=== PATIENT | female | born 1955 | race Caucasian/White ===

== ENCOUNTER 2017-11-19 09:07 | Inpatient (IN) | payer BC ==
[2017-11-12 09:49] VITALS: BMI 32.0
[2017-11-19] VITALS (8 sets, daily range): BP systolic 104–138; BP diastolic 65–82; PULSE 60–87; TEMP 36.5–36.8; O2SAT 94–100; Ht 165.1 cm; Wt 87.3 kg
[~2017-11-19] VITALS: Ht 165.1 cm; Wt 87.3 kg
[~2017-11-19 09:07] MED LIST: AMOX500C3 PO; ASPI81TA28 PO; ATV1 PO; LACTATED RINGER'S 1000ML 1,000 ML IV SCH
[2017-11-19] MEDS ORDERED: SCOPOLAMINE 1.5 MG TDSY TD ONE ×2 (11:20→11:30)
[2017-11-19] MEDS ORDERED: ATROPINE SULFATE 0.1 MG/ML 5ML SYR IV PRN (11:30)
[2017-11-19] MEDS ORDERED: ONDANSETRON INJ 2 MG/ML 2 ML VIAL IV PRN ×2 (11:30→15:00)
[2017-11-19] MEDS ORDERED: HYDROmorphone INJ 1 MG/ML SYR IV PRN (11:30)
[2017-11-19] MEDS ORDERED: EpHEDrine SULFATE INJ 50 MG/ML AMP IV PRN (11:30)
--- NOTE | 2017-11-19 11:35 | History & Physical Bridge Note ---
H&P Re-Evaluation Bridge Note: I have examined the patient, reviewed the History & Physical and in the interval since the performance of the History & Physical I have noted the following changes of clinical significance: No changes noted all questions answered family member x3 at bedside
[2017-11-19] MEDS ORDERED: GLYCOPYRROLATE INJ 0.2 MG/ML VIAL ONE ×2 (12:00→14:30)
[2017-11-19] MEDS ORDERED: NEOSTIGMINE METHYLSULFATE 5 MG/5 ML SYR ONE ×2 (12:00→14:30)
[2017-11-19] MEDS ORDERED: LIDOCAINE HCL 2% 2 ML VIAL (20MG/ML) ONE (12:00)
[2017-11-19] MEDS ORDERED: MIDAZOLAM HCL 1 MG/ML 2ML VIAL ONE (12:00)
[2017-11-19] MEDS ORDERED: FENTANYL CITRATE INJ 50 MCG/1 ML 2 ML VIAL ONE (12:00)
[2017-11-19] MEDS ORDERED: ONDANSETRON INJ 2 MG/ML 2 ML VIAL ONE (12:00)
[2017-11-19] MEDS ORDERED: PROPOFOL IV EMULSION 10 MG/ML 20 ML VIAL ONE (12:00)
[2017-11-19] MEDS ORDERED: DEXAMETHASONE SOD INJ 4 MG/ML VIAL ONE (12:00)
[2017-11-19] MEDS ORDERED: ROCURONIUM BROMIDE 10 MG/ML 5 ML VIAL ONE ×2 (12:02→13:40)
[2017-11-19] MEDS ORDERED: BUPIVACAINE 0.5 % 5 MG/1 ML PF 10ML VIAL ONE (12:06)
[2017-11-19] MEDS ORDERED: HYDROmorphone INJ 2 MG/ML SYR/VIAL ONE (13:13)
--- NOTE | 2017-11-19 14:35 | [facility] Post Operative Brief Note ---
Immediate Operative Summary Operative Date Nov 19, 2017. Pre-Operative Diagnosis Diverticulosis of Sigmoid Colon rec diverticulitis Post-Operative Diagnosis same Procedure(s) Performed lap assisted sigmoid colon resection Surgeon Dr. 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
[2017-11-19] MEDS: SODIUM CHLORIDE 0.9% 1000ML 1,000 ML IV SCH (14:48)
[2017-11-19] MEDS ORDERED: NALOXONE HCL 0.4 MG/1 ML VIAL/CARP IV PRN (15:00)
[2017-11-19] MEDS: FENTANYL CITRATE INJ 50 MCG/1 ML 2 ML VIAL IV PRN ×2 (15:04→15:09)
--- NOTE | 2017-11-19 15:37 | Anesthesiology Progress Note ---
Anesthesia Post Op Note Date & Time Nov 19, 2017 at 15:36 Vital Signs Pain Intensity: 4 Vital Signs Past 12 Hours Date Time Temp Pulse Resp B/P (MAP) Pulse Ox O2 Delivery O2 Flow Rate FiO2 11/19/17 15:32 36.4 98 Nasal Cannula 4 11/19/17 15:27 63 14 98 11/19/17 15:27 63 14 11/19/17 15:26 123/63 11/19/17 15:22 65 14 98 11/19/17 15:22 65 14 11/19/17 15:21 129/71 11/19/17 15:17 68 14 11/19/17 15:17 68 14 97 11/19/17 15:16 122/68 11/19/17 15:12 66 15 11/19/17 15:12 66 15 98 11/19/17 15:11 124/67 11/19/17 15:10 85 14 97 11/19/17 15:10 83 14 11/19/17 15:06 125/69 11/19/17 15:05 81 14 98 11/19/17 15:05 78 14 11/19/17 15:01 123/69 11/19/17 15:00 69 14 11/19/17 15:00 69 14 98 11/19/17 14:56 127/69 11/19/17 14:55 76 14 99 11/19/17 14:55 75 14 11/19/17 14:51 130/65 11/19/17 14:50 36.3 89 14 130/65 98 Oxymask 10 11/19/17 09:42 36.7 79 20 122/65 100 Room Air Notes Mental Status: alert / awake / arousable, participated in evaluation Pt Amnestic to Procedure: Yes Nausea / Vomiting: adequately controlled Pain: adequately controlled Airway Patency, RR, SpO2: stable & adequate BP & HR: stable & adequate Hydration State: stable & adequate Anesthetic Complications: no major complications apparent
[2017-11-19] MEDS: CHECK SCOPOLAMINE PATCH PLACEMENT SCH ×2 (16:00→23:41)
[2017-11-19] MEDS: LACTATED RINGER'S 1000ML 1,000 ML IV SCH (16:35)
[2017-11-19] MEDS: ACETAMINOPHEN IV 100 ML IV SCH ×2 (17:25→23:40)
[2017-11-19] MEDS: CEFOXITIN IV 2,000 MG in DEXTROSE 5% 50ML 50 ML IV SCH ×2 (17:25→22:05)
[2017-11-19] MEDS: MoRPHine SULFATE 1 MG/ML 50 ML PCA CASS IV PRN ×2 (17:27→22:55)
[2017-11-19] MEDS: HEPARIN SOD 5000 UNIT/0.5 ML CARP SQ SCH (21:41)
[2017-11-20] VITALS (7 sets, daily range): BP systolic 108–122; BP diastolic 56–65; PULSE 55–68; TEMP 36.4–37.3; O2SAT 95–97
[2017-11-20] MEDS: LACTATED RINGER'S 1000ML 1,000 ML IV SCH ×4 (01:23→23:15)
[2017-11-20] MEDS: CEFOXITIN IV 2,000 MG in DEXTROSE 5% 50ML 50 ML IV SCH (04:02)
[2017-11-20 06:11] LABS: HEMATOCRIT 35.6 % (37-47); IG# 0.03 K/uL (0.00-0.02); LYMPH % 7.5 %; LYMPH ABS # 0.83 K/uL (1.2-3.4); MEAN CELL VOLUME 88.6 fL (80-100); MEAN CORPUSCULAR HEMOGLOBIN 29.9 pg (25-34); MEAN CORPUSCULAR HGB CONC 33.7 g/dl (32-36); MEAN PLATELET VOLUME 10.3 fL (7.4-10.4); MONO ABS # 0.77 K/uL (0.11-0.59); NEUT % 85.2 %; NEUT ABS # 9.37 K/uL (1.4-6.5); PLATELET COUNT 259 K/uL (130-400); RED CELL DISTRIBUTION WIDTH CV 13.1 % (11.5-14.5); RED CELL DISTRIBUTION WIDTH SD 42.6 fL (36.4-46.3)
[2017-11-20 06:41] LABS: CALCIUM 7.9 mg/dl (8.5-10.1); CREATININE 0.95 mg/dl (0.60-1.20); POTASSIUM 4.3 mmol/L (3.5-5.1)
[2017-11-20] MEDS: MoRPHine SULFATE 1 MG/ML 50 ML PCA CASS IV PRN ×3 (06:59→23:09)
[2017-11-20] MEDS: CHECK SCOPOLAMINE PATCH PLACEMENT SCH ×3 (07:40→23:15)
--- NOTE | 2017-11-20 07:54 | SURGERY PROGRESS NOTE ---
DATE: 11/20/2017 Jaquelin is first postoperative day status post laparoscopic assisted sigmoid colon resection for diverticulitis. She is alert, coherent, in no distress. She is not nauseated. Intraoperative findings were discussed with the patient. Her last vitals showed a temperature of 36.5, pulse 60, respirations 18, blood pressure 113/65, O2 sats 97 on room air. I and O, she had 250 mL of urine overnight. It is dilute. The patient reports that she is a little bit thirsty. The Juan drainage in the pelvis was only 20 serosanguineous. The abdomen is slightly distended. She has some drainage along the incision though she has Emiliana drain subQ. Laboratories pending this morning. At this point, we will continue her IV at the present rate. I will give her some water sips and ice chips, keep her n.p.o. She may take a few more days than normal to open up since she still had some significant inflammatory changes down in the rectosigmoid junction and the anastomoses as a ap diameter of 2 cm MTDD
[2017-11-20] MEDS: ACETAMINOPHEN IV 100 ML IV SCH (08:18)
--- NOTE | 2017-11-20 08:21 | OPERATIVE REPORT ---
DATE OF OPERATION: 11/19/2017 SURGEON: Flaco Phillips MD PATIENT ASSESSMENT COORDINATOR: Abe Elise PA-C. PREOPERATIVE DIAGNOSIS: Recurrent diverticulitis. POSTOPERATIVE DIAGNOSIS: Same. PROCEDURE: Laparoscopic assisted sigmoid colon resection with primary side-to-end anastomosis. SUMMARY: The patient was brought into the operating room theater. The abdomen was prepped with Betadine solution and properly draped. Vallejo catheter had been inserted. I made a small incision supraumbilically sufficient enough to place a Veress needle followed by CO2 followed by 5 mm trocar. Point of entry inspected and no injury identified. Under direct visualization, we placed a 5 mm right flank and 5 mm left flank port. We followed the sigmoid colon which had significant adhesions to the left ovary and the left gutter. We started inside the white line of Toldt on the left gutter and took it down to the base of the peritoneal reflection and superiorly we had mobilized all the way mobilizing the splenic flexure. The sigmoid colon, at this time, we were able to see that it appeared to be quite mobile. Most of the issues and thickened wall was below the pelvis bridge and all the way down to the peritoneal reflection. We were able to free up as much as possible thr peritoneal attachments freeing up fine adhesions to the left ovary and fimbria and uterus. At this point, once we had mobilized sufficiently enough that we thought we could do a fairly easy anastomosis, I converted to an open procedure making probably a 3-inch incision in the lower midline above the symphysis pubis, deepened through subcutaneous tissue, we entered the abdomen. At this point, the Bookwalter retractor was inserted. We were able to place a towel and retract the small bowel superiorly. We were able to find the sigmoid colon and take it down and palpate and we were eventually met with a significant amount of inflammatory response well below the peritoneal reflection. At this point, we decided to divide the sigmoid colon just at the descending colon using a SERGIO stapler. The mesentery then was taken down using right angle and ligating with 2-0 silk, all the way down to where we were able to dissect down towards the presacral fascia. Again the distal sigmoid was completely inflamed, multiple times we resected pieces and found that we still had diverticula even going to the point that we thought in the upper rectum. We then placed a right angle intestinal clamp distally to the point that we found an area that was softened and sufficient enough without a significant inflammatory response and no evidence of diverticula into the tip of the rectum. In that area, the rectum itself did not appear to be of a large caliber. . We then placed a [id number] anastomosis using 3-0 silk outer layer, 3-0 chromic inner layer to the rectum. The anastomosis itself was about an inch in size, patent. We irrigated the pelvis sufficiently enough. There was no residual significant bleeding. At this point, we then placed a Juan drain through a stab wound in the right lower quadrant down to the anterior of the anastomosis, attached the skin edges with 2-0 silk. The abdomen was closed after was closed with a 2-0 chromic in continuous fashion for the peritoneum with interrupted #1 PDS [id number], 0.25 inch Marissa subQ, attached the distal end and lastly with 3-0 silk suture, darius for skin edges and the trocar site. Procedure was tolerated well by the patient. Estimated blood loss approximately 100 mL. The patient was taken to recovery room in good condition. I attest to the content of the Intraoperative Record and any orders documented therein. Any exceptions are noted below. MTDD
[2017-11-20] MEDS: HEPARIN SOD 5000 UNIT/0.5 ML CARP SQ SCH ×2 (08:34→21:21)
[2017-11-20] MEDS: SODIUM CHLORIDE 0.9% 1000ML 1,000 ML IV SCH (13:59)
[2017-11-20] MEDS: LORAZEPAM 1 MG TAB PO PRN (22:35)
[2017-11-21 02:59] VITALS: BP 129/66; PULSE 79; TEMP 37; O2SAT 93
[2017-11-21] MEDS: LACTATED RINGER'S 1000ML 1,000 ML IV SCH ×3 (06:28→23:18)
[2017-11-21 06:52] VITALS: BP 115/72; PULSE 88; TEMP 37; O2SAT 96
[2017-11-21 07:18] LABS: BASO % 0.1 %; BASO ABS # 0.01 K/uL (0-0.2); EOS % 0.1 %; EOS ABS # 0.01 K/uL (0-0.5); HEMOGLOBIN 11.2 g/dL (12.0-16.0); IG# 0.02 K/uL (0.00-0.02); LYMPH % 19.6 %; LYMPH ABS # 2.13 K/uL (1.2-3.4); MEAN CELL VOLUME 89.4 fL (80-100); MEAN CORPUSCULAR HEMOGLOBIN 31.3 pg (25-34); MEAN PLATELET VOLUME 10.1 fL (7.4-10.4); MONO % 8.8 %; MONO ABS # 0.96 K/uL (0.11-0.59); NEUT % 71.2 %; NEUT ABS # 7.74 K/uL (1.4-6.5); PLATELET COUNT 227 K/uL (130-400); RED CELL DISTRIBUTION WIDTH CV 13.4 % (11.5-14.5); RED CELL DISTRIBUTION WIDTH SD 43.8 fL (36.4-46.3); WHITE BLOOD COUNT 10.87 K/uL (4.8-10.8)
[2017-11-21] MEDS: MoRPHine SULFATE 1 MG/ML 50 ML PCA CASS IV PRN ×3 (07:51→23:17)
[2017-11-21 07:52] VITALS: BP 112/67; PULSE 83; TEMP 37; O2SAT 96
[2017-11-21 07:59] VITALS: O2SAT 96
[2017-11-21] MEDS: CHECK SCOPOLAMINE PATCH PLACEMENT SCH ×3 (08:00→23:42)
[2017-11-21 08:05] LABS: CALCIUM 8.3 mg/dl (8.5-10.1); CREATININE 0.61 mg/dl (0.60-1.20); POTASSIUM 4.2 mmol/L (3.5-5.1)
--- NOTE | 2017-11-21 08:07 | SURGERY PROGRESS NOTE ---
DATE: 11/21/2017 Jaquelin is 2 days postop laparoscopic assisted sigmoid colon resection. Overall, she feels comfortable. She is feeling like she may pass some gas. She has been up and around yesterday multiple times. Her last vitals showed a temperature of 37, pulse 88, respiration 18, blood pressure 115/72, O2 sats 96 on room air. I and O, she had 600 urine overnight. The Juan drainage is up to 195. It is serosanguineous. This attributed to being up and around yesterday. Laboratory saunders this morning, WBCs are 10.87, decreasing left shift, hemoglobin is 11.2. PRP is pending. The abdomen is still softly distended. It is nontender except for the postoperative findings. At this point, we will continue as is and increase her activity and I advised to probably be another day or two to her GI function resumes.
[2017-11-21] MEDS: HEPARIN SOD 5000 UNIT/0.5 ML CARP SQ SCH ×2 (09:31→20:48)
[2017-11-21] MEDS: SODIUM CHLORIDE 0.9% 1000ML 1,000 ML IV SCH (14:35)
[2017-11-21 14:49] VITALS: BP 127/71; PULSE 89; TEMP 37.1; O2SAT 93
[2017-11-21 22:42] VITALS: BP 124/70; PULSE 94; TEMP 37.2; O2SAT 93
[2017-11-21] MEDS: LORAZEPAM 1 MG TAB PO PRN (23:28)
[2017-11-22] MEDS: LACTATED RINGER'S 1000ML 1,000 ML IV SCH ×2 (06:35→16:54)
[2017-11-22] MEDS: MoRPHine SULFATE 1 MG/ML 50 ML PCA CASS IV PRN ×3 (06:50→23:19)
[2017-11-22] MEDS: CHECK SCOPOLAMINE PATCH PLACEMENT SCH (07:08)
[2017-11-22 07:46] LABS: BASO % 0.1 %; BASO ABS # 0.01 K/uL (0-0.2); EOS % 1.2 %; HEMATOCRIT 30.6 % (37-47); HEMOGLOBIN 10.5 g/dL (12.0-16.0); IG# 0.01 K/uL (0.00-0.02); LYMPH % 28.1 %; LYMPH ABS # 2.25 K/uL (1.2-3.4); MEAN CELL VOLUME 89.7 fL (80-100); MEAN CORPUSCULAR HEMOGLOBIN 30.8 pg (25-34); MEAN CORPUSCULAR HGB CONC 34.3 g/dl (32-36); MEAN PLATELET VOLUME 10.5 fL (7.4-10.4); MONO % 7.2 %; MONO ABS # 0.58 K/uL (0.11-0.59); NEUT % 63.3 %; NEUT ABS # 5.07 K/uL (1.4-6.5); PLATELET COUNT 240 K/uL (130-400); RED CELL DISTRIBUTION WIDTH CV 13.7 % (11.5-14.5); RED CELL DISTRIBUTION WIDTH SD 45.2 fL (36.4-46.3); WHITE BLOOD COUNT 8.02 K/uL (4.8-10.8)
[2017-11-22 08:22] LABS: CREATININE 0.52 mg/dl (0.60-1.20); POTASSIUM 3.6 mmol/L (3.5-5.1)
--- NOTE | 2017-11-22 08:34 | Surgery Progress Note ---
Surgery Progress Note Date of Service Nov 22, 2017. Subjective Post OP Day: 3 + feeling well, + flatus, + pain controlled, + diet (sips), No bowel movement, No nausea increasing drainage around drain Objective Vital Signs: Date Time Temp Pulse Resp B/P (MAP) Pulse Ox O2 Delivery O2 Flow Rate FiO2 11/22/17 07:57 Room Air 11/21/17 23:40 Room Air 11/21/17 22:42 37.2 94 17 124/70 (88) 93 Room Air 11/21/17 15:15 Room Air 11/21/17 14:49 37.1 89 16 127/71 (89) 93 Room Air Physical Exam: Juan drainage (40 cc serous) Abdomen: soft Incision(s): no erythema, drainage (rom josias) Laboratory Results: Results Past 24 Hours Test 11/22/17 06:59 Range/Units White Blood Count 8.02 4.8-10.8 K/uL Red Blood Count 3.41 4.2-5.4 M/uL Hemoglobin 10.5 12.0-16.0 g/dL Hematocrit 30.6 37-47 % Mean Corpuscular Volume 89.7 80-100 fL Mean Corpuscular Hemoglobin 30.8 25-34 pg Mean Corpuscular Hemoglobin Concent 34.3 32-36 g/dl Platelet Count 240 130-400 K/uL Mean Platelet Volume 10.5 7.4-10.4 fL Neutrophils (%) (Auto) 63.3 % Lymphocytes (%) (Auto) 28.1 % Monocytes (%) (Auto) 7.2 % Eosinophils (%) (Auto) 1.2 % Basophils (%) (Auto) 0.1 % Neutrophils # (Auto) 5.07 1.4-6.5 K/uL Lymphocytes # (Auto) 2.25 1.2-3.4 K/uL Monocytes # (Auto) 0.58 0.11-0.59 K/uL Eosinophils # (Auto) 0.10 0-0.5 K/uL Basophils # (Auto) 0.01 0-0.2 K/uL RDW Standard Deviation 45.2 36.4-46.3 fL RDW Coefficient of Variation 13.7 11.5-14.5 % Immature Granulocyte % (Auto) 0.1 % Immature Granulocyte # (Auto) 0.01 0.00-0.02 K/uL Sodium Level 136 136-145 mmol/L Potassium Level 3.6 3.5-5.1 mmol/L Chloride Level 102 98-107 mmol/L Carbon Dioxide Level 26 21-32 mmol/L Anion Gap 8.0 3-11 mmol/L Blood Urea Nitrogen 7 7-18 mg/dl Creatinine 0.52 0.60-1.20 mg/dl Est Creatinine Clear Calc Drug Dose 122.4 ml/min Estimated GFR () 118.7 Estimated GFR (Non- 102.4 BUN/Creatinine Ratio 14.2 10-20 Random Glucose 78 70-99 mg/dl Calcium Level 8.0 8.5-10.1 mg/dl Assessment & Plan s/p sigmoid colectomy for diverticulitis juan drain was pulling out, not holding suction and was removed will start on clears, decrease IVF to 75 cc/hr ambulating seen earlier this morning by Dr. Phillips
[2017-11-22] MEDS: HEPARIN SOD 5000 UNIT/0.5 ML CARP SQ SCH ×2 (09:13→20:53)
[2017-11-22 10:17] VITALS: BP 139/80; PULSE 93; TEMP 36.9; O2SAT 95
[2017-11-22] MEDS: SODIUM CHLORIDE 0.9% 1000ML 1,000 ML IV SCH (10:47)
[2017-11-22 14:55] VITALS: BP 126/71; PULSE 95; TEMP 36.7; O2SAT 96
[2017-11-22] MEDS: LORAZEPAM 1 MG TAB PO PRN (20:54)
[2017-11-22 23:15] VITALS: BP 121/73; PULSE 102; TEMP 37.5; O2SAT 93
[2017-11-23 04:07] VITALS: BP 114/68; PULSE 95; TEMP 37.1; O2SAT 96
[2017-11-23] MEDS: LACTATED RINGER'S 1000ML 1,000 ML IV SCH (05:41)
[2017-11-23] MEDS ORDERED: OXYCODONE/ACETAMINOPHEN 5-325 TAB PO PRN (06:00)
--- NOTE | 2017-11-23 06:58 | SURGERY PROGRESS NOTE ---
DATE: 11/23/2017 Jaquelin is fourth postoperative day status post laparoscopic assisted sigmoid colon resection for diverticulitis, recurrence. A path report was noted. Jaquelin is doing very well. She is passing flatus. In fact, she had a small bowel movement this morning. Her last vitals showed a temperature of 37.1, pulse 95, respiratory rate is 16, blood pressure 114/68, O2 sats 96 on room air. I and O, she has 325 mL of urine overnight. She is mobilizing fluid. The abdomen is softly distended, it is nontender. The lower abdominal retrieval incision. The Emiliana drain was removed. The Juan drain was removed yesterday. At this point, we will encourage her to take a shower. We will increase her diet to full liquid diet today. 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
[2017-11-23 08:01] VITALS: BP 127/68; PULSE 96; TEMP 36.9; O2SAT 96
[2017-11-23] MEDS: HEPARIN SOD 5000 UNIT/0.5 ML CARP SQ SCH ×2 (09:08→21:13)
[2017-11-23] MEDS: ACETAMINOPHEN 500 MG TAB PO PRN ×2 (09:39→18:27)
[2017-11-23 15:10] VITALS: BP 114/73; PULSE 96; TEMP 36.8; O2SAT 96
[2017-11-23] MEDS: LORAZEPAM 1 MG TAB PO PRN (21:14)
[2017-11-23 22:50] VITALS: BP 120/69; PULSE 92; TEMP 37; O2SAT 95
--- NOTE | 2017-11-24 06:14 | Surgery Progress Note ---
Surgery Progress Note Date of Service Nov 24, 2017. Subjective Post OP Day: 5 + feeling well, + ambulating, + bowel movement, + flatus, + pain controlled ( reports pain controlled on tylenol, she has been refusing percocet), + diet ( Tolerating full liquids), No complaints, No nausea, No vomiting Objective Vital Signs: Date Time Temp Pulse Resp B/P (MAP) Pulse Ox O2 Delivery O2 Flow Rate FiO2 11/23/17 23:30 Room Air 11/23/17 22:50 37.0 92 16 120/69 (86) 95 Room Air 11/23/17 15:35 Room Air 11/23/17 15:10 36.8 96 16 114/73 (87) 96 Room Air 11/23/17 08:01 36.9 96 18 127/68 (87) 96 Room Air 11/23/17 07:17 Room Air General Appearance: no apparent distress Head: normocephalic, atraumatic Respiratory/Chest: no respiratory distress Abdomen: soft, no organomegaly, + distended (minimal), + tenderness (minimal incisional) Incision(s): clean, dry, intact, no erythema, no drainage Assessment & Plan POD #5 s/p laparoscopic assisted sigmoid colon resection for diverticulitis Doing very well. Pain controlled. Abdomen soft, minimal distention and incisional tenderness. Tolerating full liquids. no N/V. +flatus, +BM, ambulating. Urinating without issue. Will advance to low-fiber diet this AM and see how she tolerates. Likely d/c today if she continues to do well. Will discuss findings with Dr. Phillips. Please contact with questions or concerns.
--- NOTE | 2017-11-24 06:19 | Discharge Instructions ---
Discharge Instructions Date of Service Nov 24, 2017. Admission Reason for Admission: Diverticulosis Of Sigmoid Colon Discharge Discharge Diagnosis / Problem: Diverticulosis of sigmoid colon Discharge Goals Goal(s): Decrease discomfort, Improve function Activity Recommendations Activity Limitations: as noted below Lifting Limitations: no more than 10 pounds, until after follow-up appointment Exercise/Sports Limitations: until after follow-up appointment Shower/Bathe: no limitations Driving or Machine Use: resume 3 days after discharge . Instructions / Follow-Up Instructions / Follow-Up You may alternate OTC Ibuprofen and tylenol PRN for pain relief. Please use as directed. Follow-up with Dr. Phillips in approx 1-2 weeks. Please contact our office at to schedule an appointment if you have not done so already. Please contact our office with any further questions or concerns. Current Hospital Diet Patient's current hospital diet: Low Fiber Diet Discharge Diet Recommended Diet: Low Fiber Diet Procedures Procedures Performed: Laparoscopic-Assisted Sigmoid Colon Resection Pending Studies Studies pending at discharge: no Medical Emergencies . Who to Call and When: Medical Emergencies: If at any time you feel your situation is an emergency, please call 911 immediately. . Non-Emergent Contact Non-Emergency issues call your: Primary Care Provider, Surgeon Call Non-Emergent contact if: you have a fever, temperature is above 101.5, your pain is not controlled, your pain is worsening, wound has increased drainage, wound has increased redness . "Provider Documentation" section prepared by Ascencion Melchor. . [place] Drug Monitoring Program Search Results: patient reviewed within database, no issues identified
[2017-11-24 07:10] VITALS: BP 128/72; PULSE 90; TEMP 36.8; O2SAT 97
[2017-11-24] MEDS: ACETAMINOPHEN 500 MG TAB PO PRN (07:22)
[2017-11-24] MEDS: HEPARIN SOD 5000 UNIT/0.5 ML CARP SQ SCH (09:14)
[2017-11-24 10:37] VITALS: BP 128/72; PULSE 90; TEMP 36.8; O2SAT 97
--- NOTE | 2017-11-26 16:06 | DISCHARGE SUMMARY ---
PRIMARY DISCHARGE DIAGNOSIS: Recurrent diverticulitis. PROCEDURE PERFORMED: Laparoscopic assisted sigmoid colon resection with primary side-to-end anastomosis. HOSPITAL COURSE: The patient is a 62-year-old female with recurrent diverticulitis, brought in through same day and taken to the operating room for laparoscopic-assisted sigmoid resection. The procedure was well tolerated. She was transferred to the surgical floor. Subcutaneous heparin was used for DVT prophylaxis. Perioperative Mefoxin was continued. Her diet was advanced slowly. She began passing some flatus on postoperative day 2. She was advanced on clear liquids on postoperative day #3. The Juan drain was removed. By day 4, she began moving her bowels. She was advanced to a full-liquid diet. 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 By day 5, she was tolerating low-fiber diet. She was tolerating oral analgesics. Her incision was healing well. Emiliana drain was removed. She was stable for discharge. DISCHARGE INSTRUCTIONS: Discharged home. Follow up with Dr. Phillips in 1 week. DISCHARGE MEDICATIONS: Tylenol over the counter as needed for pain. Continue her aspirin 81 mg daily, Ativan 1 mg at bedtime p.r.n. and Amoxil 2 grams prior to dental procedures.
== END 2017-11-24 11:20 | disposition home or self-care (01) | DRG 331 ==
LOC: C.ACU 09:07 → C.MSW 14:53 → ENRESERV 15:35 → C.MSW 11-20 14:34
PROVIDERS: ADMIT Surgery; ATTEND Surgery
PROC: 0DTN0ZZ Resection of Sigmoid Colon, Open Approach (ICD-10-PCS; principal; 2017-11-19 11:15)
DX: K57.32 Diverticulitis of large intestine without perforation or abscess without bleeding (principal); Z53.31 Laparoscopic surgical procedure converted to open procedure; F32.9 Major depressive disorder, single episode, unspecified; F17.200 Nicotine dependence, unspecified, uncomplicated; Z51.81 Encounter for therapeutic drug level monitoring; Z79.899 Other long term (current) drug therapy; Z79.82 Long term (current) use of aspirin; Z87.74 Personal history of (corrected) congenital malformations of heart and circulatory system; Z95.2 Presence of prosthetic heart valve